=== PATIENT | male | born 1955 ===

== ENCOUNTER 2017-11-05 16:47 | Inpatient (IN) | payer MEDICAID, MEDICARE, SELFPAY ==
[2017-11-05 16:47] VITALS: BMI 26.6
[2017-11-05] MEDS ORDERED: Sodium Chloride 0.9% 1,000 ML IV STA (17:23)
[2017-11-05] MEDS ORDERED: Morphine 4 MG/ML VIAL IVP STA (17:24)
--- NOTE | 2017-11-05 17:33 | ED PDOC ---
HPI: Abdomen Chief Complaint (Provider): abd pain History Per: Patient History/Exam Limitations: no limitations Onset/Duration Of Symptoms: Days (2) Current Symptoms Are (Timing): Intermittent Episodes Pain Scale Rating Of: 10 Location Of Pain/Discomfort: Diffuse, Epigastric Quality Of Discomfort: Cramping Associated Symptoms: Nausea, Vomiting, Constipation Exacerbating Factors: None Alleviating Factors: None Last Bowel Movement: Days Ago (5) <Sharon Patterson - Last Filed: 11/05/17 18:55> <Emily Monroy - Last Filed: 11/05/17 21:22> Time Seen by Provider: 11/05/17 16:59 Chief Complaint (Nursing): Abdominal Pain Additional Complaint(s): 62 yo ,m, PMHx/o Asthma, HTN, perforated diverticulitis s/p reversal ileostomy 2014 presents to Ed c/o epigastric abdominal pain started 2 days ago in the afternoon 6 hours after patient ate chrimps. Reports pain intermittent, cramping, 10/10 intensity every 4-5 minutes, associated with nausea, non-bloddy , dark brown fecaloid vomiting, more than 4-5 /day and constipation. Last BM 5 days ago. Able to pass flatus, but not frequent. Reports abd pain is sometimes diffuse and radiated to lower abdomen, no aggravating or alleviating factors. Reports subjective fever 100.2 yesterday. Patient denies chest pain, heartburn, SOB, palpitation, rash, hives, dysuria. Reports low oral intake since yesterday. Reports normal BM with metamucil but run out of medication and now with constipation PMD: Agatha Hung (Sharon Patterson) Supervising Attending Note <Sharon Patterson - Last Filed: 11/05/17 18:55> - Supervising Attending Note The Documented history was done by the: Physician Streetcar Repairer, Attending Physician The documented physical exam was done by the: Physician Streetcar Repairer, Attending Physician - Attestation: I have personally seen and examined this patient.: Yes I have fully participated in the care of the patient.: Yes I have reviewed all pertinent clinical information: Yes <Emily Monroy - Last Filed: 11/05/17 21:22> - Notes: Notes:: diffuse tenderness, soft abdomen abd xray c/w obstruction (Emily Monroy) Past Medical History - Medical History PMH: Asthma (childhood), Diverticulitis, HTN Denies: Chronic Kidney Disease - Surgical History Surgical History: Back Surgery, Hernia Repair Other surgeries: Perforated Diverticulitis, reversal ileostomy. 2015 - Family History Family History: States: [place] (mother) - Social History Alcohol: None Drugs: Denies <Sharon Patterson - Last Filed: 11/05/17 18:55> <Emily Monroy - Last Filed: 11/05/17 21:22> Vital Signs: Last Vital Signs Temp 99.2 F 11/05/17 20:54 Pulse 82 11/05/17 20:54 Resp 18 11/05/17 20:54 BP 129/81 11/05/17 20:54 Pulse Ox 96 11/05/17 20:54 - Home Medications Home Medications: Ambulatory Orders Medication Instructions Recorded Baclofen [Lioresal] 10 mg PO HS 11/05/17 Losartan Potassium [Losartan 50 mg PO DAILY 11/05/17 Potassium] Oxycodone HCl/Acetaminophen 1 tab PO QID 11/05/17 [Percocet 10-325 mg Tablet] Pregabalin [Lyrica] 100 mg PO BID 11/05/17 Temazepam [Restoril] 15 mg PO HS 11/05/17 - Allergies Allergies/Adverse Reactions: Allergies Allergy/AdvReac Type Severity Reaction Status Date / Time No Known Allergies Allergy Verified 03/19/15 11:01 Review of Systems Gastrointestinal: Positive for: Nausea, Vomiting, Abdominal Pain, Diarrhea, Constipation <Sharon Patterson - Last Filed: 11/05/17 18:55> Physical Exam - Physical Exam Appears: Positive for: Non-toxic Head Exam: Positive for: ATRAUMATIC, NORMOCEPHALIC Skin: Positive for: Normal Color Eye Exam: Positive for: Normal appearance Neck: Positive for: Normal Cardiovascular/Chest: Positive for: Regular Rate, Rhythm. Negative for: Chest Non Tender, Murmur Respiratory: Positive for: Normal Breath Sounds. Negative for: Crackles, Rales , Rhonchi Gastrointestinal/Abdominal: Positive for: Bowel Sounds, Soft, Tenderness (TD epigastrium, periumbilical, LLQ), Distended, Other (tympanic to percussion LUQ, egastric). Negative for: Guarding, Rebound Extremity: Positive for: Normal ROM. Negative for: Tenderness, Pedal Edema Neurologic/Psych: Positive for: Alert, Oriented <Sharon Patterson - Last Filed: 11/05/17 18:55> - Laboratory Results Result Diagrams: 11/05/17 17:57 11/05/17 17:57 - ECG O2 Sat by Pulse Oximetry: 98 <Sharon Patterson - Last Filed: 11/05/17 18:55> - Laboratory Results Result Diagrams: 11/05/17 17:57 11/05/17 17:57 <Emily Monroy - Last Filed: 11/05/17 21:22> Medical Decision Making <Sharon Patterson - Last Filed: 11/05/17 18:55> <Emily Monroy - Last Filed: 11/05/17 21:22> Medical Decision Makin:25 62 yo ,m, Hx/o perforated diverticulitis with reversal ileostomy 2015 with abdominal pain started after chrimps ingestion, vomiting, colic abd pain, constipation Initial impression Intestinal Obstruction secondary to adhesions Food Poisoning Differential Acute Pancreatitis Acute Diverticulitis Acute Appendicitis Ischemic bowel disease Plan CBC,CMP,Lipase, mg,phosp, EKG, troponin, IV fluids, pepsid,Zofran, Morphine Obstructive Series XR Abd Obst series: showed loop distention and gas and fluid levels at different heights indicating a mechanical obstruction. pending final reports General surgery resident air conditioning technician for Dr Bennett called and aware about the case. 18:39 reevaluation PAtient reports feeling better after pain medications. last vomiting 1 pm. Surgery Resident bedside evaluating patient. Labs reviewed CBC normal, M.7 , VBG: Met alkalosis. K:3.5, troponin neg XR OBst series: distal small bowel obstruction either earlier incomplete. no free air identified CT abd/pelvis IV contrast ordered Patient will be admitted Surgery consult appreciated. will place NGT (Sharon Patterson) Disposition - Disposition Disposition Time: 18:55 <Sharon Patterson - Last Filed: 11/05/17 18:55> <Emily Monroy - Last Filed: 11/05/17 21:22> - Clinical Impression Clinical Impression: Intestinal obstruction - Disposition Condition: STABLE
[2017-11-05] MEDS ORDERED: Morphine 4 MG/ML VIAL ONE (17:35)
[2017-11-05 17:46] LABS: VENOUS BLOOD GAS PCO2 45 mmHg (40-60); VENOUS BLOOD GAS PO2 29 mm/Hg (30-55); VENOUS BLOOD PH 7.47 (7.32-7.43)
[2017-11-05 18:06] LABS: BASO % 0.1 % (0.0-2.0); EOS % 0.5 % (0.0-4.0); HEMOGLOBIN 11.2 g/dL (12.0-18.0); LYMPH # 0.9 K/uL (1.0-4.3); LYMPH % 12.3 % (20.0-40.0); MEAN CELL VOLUME 68.3 fl (80.0-94.0); MEAN CORPUSCULAR HGB CONC 30.7 g/dL (33.0-37.0); MEAN PLATELET VOLUME 8.8 fl (7.2-11.7); MONO # 0.8 K/uL (0.0-0.8); NEUT # 5.6 K/uL (1.8-7.0); NEUT % 76.1 % (50.0-75.0); RBC 5.34 Mil/uL (4.40-5.90); RED CELL DISTRIBUTION WIDTH 20.8 % (11.5-14.5); WHITE BLOOD COUNT 7.4 K/uL (4.8-10.8)
[2017-11-05 18:11] LABS: INR 1.2 (0.9-1.2); PARTIAL THROMBOPLASTIN TIME 26.9 Seconds (25.6-37.1); PROTHROMBIN TIME 12.9 Seconds (9.8-13.1)
[2017-11-05 18:21] LABS: ALB/GLOB RATIO 1.2 (1.0-2.1); ALBUMIN 4.9 g/dL (3.5-5.0); ALT/SGPT 48 U/L (21-72); AST/SGOT 36 U/L (17-59); BLOOD UREA NITROGEN 30 mg/dl (9-20); CALCIUM 9.6 mg/dL (8.4-10.2); GFR AFRICAN-AMERICAN > 60; GFR NON-AFRICAN AMERICAN > 60; LIPASE 221 U/L (23-300)
--- NOTE | 2017-11-05 18:47 | RAD ---
PROCEDURE: Radiographs of the chest and abdomen (obstructive series) rim rim HISTORY: Abd pain,vomiting.R/o Intest Obstruction COMPARISON: No prior. TECHNIQUE: AP radiograph of the chest, with upright and supine radiographs of the abdomen. FINDINGS: CHEST: Lungs: Clear. Cardiovascular: Normal size heart. No pulmonary vascular congestion. Pleura: No pleural fluid. No pneumothorax. Other findings: None. ABDOMEN AND PELVIS: Bowel: Dilated small bowel, this extends to the the right lower quadrant. Free air: None. Bones: Unremarkable. Other findings: Distended stomach with air-fluid level. IMPRESSION: Distal small bowel obstruction either earlier incomplete. No free air identified.
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
[2017-11-05] MEDS ORDERED: Iohexol 300 100 ML IJ ONE (19:21)
[2017-11-05] MEDS ORDERED: Sodium Chloride 0.9% 100 ML ONE (19:21)
--- NOTE | 2017-11-05 20:37 | CT ---
EXAM: CT Abdomen and Pelvis With Intravenous Contrast EXAM DATE/TIME: 11/05/2017 6:59 PM CLINICAL HISTORY: 62 years old, male; Pain; Abdominal pain; Epigastric; Prior surgery; Surgery date: 6+ months; Surgery type: Perforated divertic. S/P reversal ileostomy 2014; Additional info: Obstruction. Sent phy. Doc. TECHNIQUE: Axial computed tomography images of the abdomen and pelvis with intravenous contrast. All CT scans at this facility use one or more dose reduction techniques, viz.: automated exposure control; ma/kV adjustment per patient size (including targeted exams where dose is matched to indication; i.e. head); or iterative reconstruction technique. Coronal and sagittal reformatted images were created and reviewed. CONTRAST: 95 mL of administered intravenously. COMPARISON: CT - ABD PELVIS IV CONTRAST ONLY 2014-11-25 14:00 FINDINGS: Lower thorax: Heart size is normal. The distal esophagus is collapsed around a nasogastric tube. There is scarring at the lung bases. ABDOMEN: Liver: There is fatty infiltration of the liver. Gallbladder and bile ducts: Gallbladder is partially distended. There are multiple small stones.Common duct is unremarkable. Pancreas: Pancreas is atrophic. Spleen: unremarkable Adrenals: unremarkable Kidneys and ureters: There is a left renal cyst.Kidneys and ureters are otherwise unremarkable. Stomach and bowel: Stomach is incompletely distended. Nasogastric tube tip is in the stomach. Rotation is normal. Majority of the small bowel is dilated. There are air fluid levels. There is transition to normal caliber in the pelvis, image 47 series 601 there is mild small bowel dilatation and an enteral anastomosis in the right lower quadrant. Much of the ileum is decompressed. Ileocecal region is unremarkable. Appendix and terminal ileum are unremarkable.Colon is incompletely distended which limits evaluation. There is been partial left colon resection. There is diverticulosis Appendix: See stomach and bowel PELVIS: Bladder: unremarkable Reproductive: Seminal vesicles and prostate are unremarkable. ABDOMEN and PELVIS: Intraperitoneal space: There is no free air or free fluid. Bones/joints: There are degenerative changes in the osseus structures. Soft tissues: unremarkable Vasculature: There are vascular calcifications. Lymph nodes: There is no pathologic adenopathy. IMPRESSION: Small bowel obstruction; prior partial small bowel resection with enteral anastomosis in the right lower quadrant; partial left hemicolectomy; diverticulosis without CT findings of diverticulitis; fatty liver; gallstones
[2017-11-05] MEDS ORDERED: HYDROmorphone 0.5 mg/0.5 ml ISec IVP SCH (22:00)
[2017-11-05] MEDS: Lactated Ringer's 1,000 ML IV SCH (22:27)
[2017-11-05] MEDS: HYDROmorphone 0.5 mg/0.5 ml ISec IVP PRN (22:38)
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
[2017-11-06] MEDS: Lactated Ringer's 1,000 ML IV SCH ×6 (03:11→20:42)
[2017-11-06] MEDS: HYDROmorphone 0.5 mg/0.5 ml ISec IVP PRN (06:16)
--- NOTE | 2017-11-06 07:59 | CP.PCM.PN ---
Subjective - Date & Time of Evaluation Date of Evaluation: 11/06/17 Time of Evaluation: 07:30 - Subjective Subjective: SURGERY PROGRESS NOTE FOR DR. LÓPEZ 62M seen and examined at bedside. Patient states he had mild abdominal pain still, denies vomiting but states he does have nausea. He states he is not passing gas and has not had a bowel movement in 3/4 days. Denies fevers and chills. Objective - Vital Signs/Intake and Output Vital Signs (last 24 hours): Temp Pulse Resp BP Pulse Ox 97.4 F L 73 20 106/69 97 11/05/17 23:30 11/05/17 23:30 11/05/17 23:30 11/05/17 23:30 11/05/17 23:30 Intake and Output: 11/06/17 11/06/17 06:59 18:59 Output Total 10 Balance -10 - Medications Medications: Current Medications Lactated Ringer's (Lactated Ringer's) 1,000 mls @ 125 mls/hr IV .Q8H FRIDA Last Admin: 11/06/17 06:12 Dose: 125 mls/hr Ondansetron HCl (Zofran Inj) 4 mg IVP Q6 PRN PRN Reason: Nausea/Vomiting Pantoprazole Sodium (Protonix Inj) 40 mg IVP DAILY FRIDA - Labs Labs: 11/05/17 17:57 11/05/17 17:57 PT 12.9 Seconds (9.8-13.1) 11/05/17 17:57 INR 1.2 (0.9-1.2) 11/05/17 17:57 APTT 26.9 Seconds (25.6-37.1) 11/05/17 17:57 - Constitutional Appears: Well, Non-toxic, No Acute Distress - ENT Exam ENT Exam: Mucous Membranes Moist - Respiratory Exam Respiratory Exam: Clear to Ausculation Bilateral, NORMAL BREATHING PATTERN - Cardiovascular Exam Cardiovascular Exam: REGULAR RHYTHM, +S1, +S2 - GI/Abdominal Exam GI & Abdominal Exam: Soft, Tenderness (moderate tenderness diffusely), Rebound. absent: Distended, Firm, Guarding, Rigid - Neurological Exam Neurological Exam: Alert, Awake - Skin Skin Exam: Dry, Intact, Normal Color, Warm Assessment and Plan - Assessment and Plan (Free Text) Assessment: 62M presents with SBO Plan: NGT in place - 30cc out overnight Pain control, anti-emetic Serial abdominal exam Await bowel function Further recs discuss with Dr. Donald Nicholas, PGY2
--- NOTE | 2017-11-06 12:09 | CARD ---
APPROVED REPORT EKG Measurement Heart [id number] <Conclusion> Normal sinus rhythm Normal ECG
[2017-11-06 12:45] LABS: BLOOD UREA NITROGEN 28 mg/dl (9-20); CALCIUM 8.5 mg/dL (8.4-10.2); GFR AFRICAN-AMERICAN > 60; GFR NON-AFRICAN AMERICAN > 60
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
[2017-11-07] MEDS: Lactated Ringer's 1,000 ML IV SCH ×3 (04:00→20:20)
--- NOTE | 2017-11-07 07:45 | CP.PCM.PN ---
Subjective - Date & Time of Evaluation Date of Evaluation: 11/07/17 Time of Evaluation: 07:43 - Subjective Subjective: Surgery Progress Note: Dr. Bennett 62 year old male patient was seen and examined at bedside. Reports mild abdominal pain still but denies vomiting. He states he passed gas and was able to have a small bowel movement as well. Denies fevers and chills. Objective - Vital Signs/Intake and Output Vital Signs (last 24 hours): Temp Pulse Resp BP Pulse Ox 97.9 F 73 20 104/69 95 11/06/17 23:39 11/06/17 23:39 11/06/17 23:39 11/06/17 23:39 11/06/17 23:39 - Medications Medications: Current Medications Acetaminophen (Tylenol 325mg Tab) 650 mg PO Q6 PRN PRN Reason: Headache Heparin Sodium (Porcine) (Heparin) 5,000 units SC Q8 [facility] PRN Reason: Protocol Last Admin: 11/07/17 00:47 Dose: 5,000 units Lactated Ringer's (Lactated Ringer's) 1,000 mls @ 125 mls/hr IV .Q8H [facility] Last Admin: 11/06/17 20:42 Dose: 125 mls/hr Ketorolac Tromethamine (Toradol) 15 mg IVP Q6 PRN PRN Reason: Pain, moderate (4-7) Metoclopramide HCl (Reglan) 10 mg IVP Q8 [facility] Last Admin: 11/07/17 00:48 Dose: 10 mg Morphine Sulfate (Morphine) 1 mg IVP Q4 PRN PRN Reason: Pain, severe (8-10) Last Admin: 11/07/17 02:00 Dose: 1 mg Ondansetron HCl (Zofran Inj) 4 mg IVP Q6 PRN PRN Reason: Nausea/Vomiting Last Admin: 11/06/17 17:32 Dose: 4 mg Pantoprazole Sodium (Protonix Inj) 40 mg IVP DAILY [facility] Last Admin: 11/06/17 08:31 Dose: 40 mg - Labs Labs: 11/05/17 17:57 11/06/17 11:49 PT 12.9 Seconds (9.8-13.1) 11/05/17 17:57 INR 1.2 (0.9-1.2) 11/05/17 17:57 APTT 26.9 Seconds (25.6-37.1) 11/05/17 17:57 - Constitutional Appears: Well, Non-toxic, No Acute Distress - Head Exam Head Exam: ATRAUMATIC - GI/Abdominal Exam GI & Abdominal Exam: Soft. absent: Hernia, Mass - Neurological Exam Neurological Exam: Alert, Awake, Oriented x3 - Psychiatric Exam Psychiatric exam: Normal Affect, Normal Mood Assessment and Plan - Assessment and Plan (Free Text) Assessment: 62M presents with SBO Plan: Pain control, anti-emetic Serial abdominal exam - Shows improvement Await bowel function Start clear liquid diet Further recs discuss with Dr. Bennett
--- NOTE | 2017-11-07 12:54 | RAD ---
PROCEDURE: Radiographs of the chest and abdomen (obstructive series) HISTORY: sbo COMPARISON: No prior. TECHNIQUE: AP radiograph of the chest, with upright and supine radiographs of the abdomen. FINDINGS: CHEST: Lungs: Clear. Cardiovascular: Normal size heart. No pulmonary vascular congestion. Pleura: No pleural fluid. No pneumothorax. Other findings: None. ABDOMEN AND PELVIS: Bowel: Prominent small bowel loops with air-fluid levels on the AP view. Free air: None. Bones: Unremarkable. Other findings: None. IMPRESSION: Prominent small bowel loops with air-fluid levels on the AP view compatible with known small bowel obstruction.
[2017-11-07] MEDS ORDERED: Chlorhexidine Gluconate 1 APPL/PKT TP ONE (20:25)
[2017-11-07] MEDS ORDERED: Morphine 4 MG/ML VIAL IVP PRN (20:54)
[2017-11-07] MEDS ORDERED: Potassium Ch 20mEq in D5-1/2NS 1,000 ML IV SCH (21:00)
[2017-11-07 21:19] LABS: BASO % 0.2 % (0.0-2.0); EOS # 0.1 K/uL (0.0-0.7); EOS % 1.9 % (0.0-4.0); HEMOGLOBIN 9.2 g/dL (12.0-18.0); LYMPH # 0.7 K/uL (1.0-4.3); LYMPH % 11.9 % (20.0-40.0); MEAN CELL VOLUME 69.5 fl (80.0-94.0); MEAN CORPUSCULAR HEMOGLOBIN 21.1 pg (27.0-31.0); MEAN CORPUSCULAR HGB CONC 30.3 g/dL (33.0-37.0); MEAN PLATELET VOLUME 8.5 fl (7.2-11.7); MONO # 0.9 K/uL (0.0-0.8); MONO % 14.6 % (0.0-10.0); NEUT # 4.3 K/uL (1.8-7.0); NEUT % 71.4 % (50.0-75.0); RBC 4.35 Mil/uL (4.40-5.90); RED CELL DISTRIBUTION WIDTH 20.3 % (11.5-14.5); WHITE BLOOD COUNT 6.1 K/uL (4.8-10.8)
[2017-11-07 21:39] LABS: ALB/GLOB RATIO 1.1 (1.0-2.1); ALBUMIN 3.7 g/dL (3.5-5.0); ALT/SGPT 38 U/L (21-72); AST/SGOT 27 U/L (17-59); BLOOD UREA NITROGEN 18 mg/dl (9-20); CALCIUM 8.8 mg/dL (8.4-10.2); GFR AFRICAN-AMERICAN > 60; GFR NON-AFRICAN AMERICAN > 60
[2017-11-07 22:26] LABS: VENOUS BLOOD GAS BASE EXCESS 1.7 mmol/L (0.0-2.0); VENOUS BLOOD GAS PCO2 38 mmHg (40-60); VENOUS BLOOD GAS PO2 44 mm/Hg (30-55); VENOUS BLOOD PH 7.44 (7.32-7.43)
--- NOTE | 2017-11-07 22:46 | CP.PCM.PN ---
Subjective - Date & Time of Evaluation Date of Evaluation: 11/07/17 Time of Evaluation: 14:30 - Subjective Subjective: Still c/o of abdominal pain. Denies nausea/vomiting. States passing flatus, had a very small BM Feels hungry, would like to eat. Denies cp, sob, fever or chills Objective - Vital Signs/Intake and Output Vital Signs (last 24 hours): Temp Pulse Resp BP Pulse Ox 98.6 F 90 18 116/75 95 11/07/17 22:30 11/07/17 22:30 11/07/17 22:30 11/07/17 22:30 11/07/17 22:30 - Medications Medications: Current Medications Acetaminophen (Tylenol 325mg Tab) 650 mg PO Q6 PRN PRN Reason: Headache Heparin Sodium (Porcine) (Heparin) 5,000 units SC Q8 [facility] PRN Reason: Protocol Last Admin: 11/07/17 16:16 Dose: 5,000 units Potassium Chloride/Dextrose/Sod Cl (Potassium Chl 20 Meq In D5-Ns) 1,000 mls @ 125 mls/hr IV .Q8H [facility] Stop: 11/09/17 21:43 Ketorolac Tromethamine (Toradol) 15 mg IVP Q6 PRN PRN Reason: Pain, moderate (4-7) Last Admin: 11/07/17 17:06 Dose: 15 mg Metoclopramide HCl (Reglan) 10 mg IVP Q8 [facility] Last Admin: 11/07/17 16:16 Dose: 10 mg Morphine Sulfate (Morphine) 4 mg IVP Q4 PRN PRN Reason: Pain, severe (8-10) Last Admin: 11/07/17 21:06 Dose: 4 mg Morphine Sulfate (Morphine) 2 mg IVP Q4 PRN PRN Reason: Pain, moderate (4-7) Ondansetron HCl (Zofran Inj) 4 mg IVP Q6 PRN PRN Reason: Nausea/Vomiting Last Admin: 11/06/17 17:32 Dose: 4 mg Pantoprazole Sodium (Protonix Inj) 40 mg IVP DAILY [facility] Last Admin: 11/07/17 08:23 Dose: 40 mg - Labs Labs: 11/07/17 20:26 11/07/17 20:26 PT 12.9 Seconds (9.8-13.1) 11/05/17 17:57 INR 1.2 (0.9-1.2) 11/05/17 17:57 APTT 26.9 Seconds (25.6-37.1) 11/05/17 17:57 - Constitutional Appears: Well, No Acute Distress - Head Exam Head Exam: ATRAUMATIC - Respiratory Exam Respiratory Exam: Clear to Ausculation Bilateral, NORMAL BREATHING PATTERN - Cardiovascular Exam Cardiovascular Exam: REGULAR RHYTHM, +S1, +S2 - GI/Abdominal Exam GI & Abdominal Exam: Soft, Tenderness (LLQ), Normal Bowel Sounds - Neurological Exam Neurological Exam: Alert, Oriented x3 - Psychiatric Exam Psychiatric exam: Normal Affect, Normal Mood - Skin Skin Exam: Normal Color, Warm Assessment and Plan (1) Small bowel obstruction Assessment & Plan: Maintain NPO IVF surgery on board pain medications prn anti-emetics prn DVT/GI prophylaxis Status: Acute (2) Abdominal pain Status: Acute (3) Hypertension Status: Chronic
[2017-11-07] MEDS: Potassium Chl 20 mEq in D5-NS 1,000 ML IV SCH (23:03)
[2017-11-08] MEDS: Potassium Chl 20 mEq in D5-NS 1,000 ML IV SCH ×4 (06:26→21:33)
[2017-11-08 07:34] LABS: BASO % 0.2 % (0.0-2.0); EOS # 0.1 K/uL (0.0-0.7); EOS % 2.1 % (0.0-4.0); HEMOGLOBIN 8.5 g/dL (12.0-18.0); LYMPH # 1.1 K/uL (1.0-4.3); LYMPH % 16.8 % (20.0-40.0); MEAN CELL VOLUME 68.8 fl (80.0-94.0); MEAN CORPUSCULAR HEMOGLOBIN 21.6 pg (27.0-31.0); MEAN CORPUSCULAR HGB CONC 31.5 g/dL (33.0-37.0); MEAN PLATELET VOLUME 8.7 fl (7.2-11.7); MONO # 0.9 K/uL (0.0-0.8); MONO % 13.4 % (0.0-10.0); NEUT # 4.5 K/uL (1.8-7.0); NEUT % 67.5 % (50.0-75.0); RBC 3.92 Mil/uL (4.40-5.90); RED CELL DISTRIBUTION WIDTH 20.5 % (11.5-14.5); WHITE BLOOD COUNT 6.7 K/uL (4.8-10.8)
[2017-11-08 07:50] LABS: BLOOD UREA NITROGEN 14 mg/dl (9-20); CALCIUM 8.4 mg/dL (8.4-10.2); GFR AFRICAN-AMERICAN > 60; GFR NON-AFRICAN AMERICAN > 60
--- NOTE | 2017-11-08 10:07 | RAD ---
HISTORY: SBO, worsening pain COMPARISON: Correlation made with CT scan abdomen pelvis 11/05/2017 at the at 1923 hours. Comparison made with abdominal radiographs 11/25/2014 FINDINGS: In situ NGT, tip of which overlies midline in the upper/mid abdomen region. BOWEL: Re- demonstrated are multiple distended air-filled loops of small bowel ; rule out partial/ -intermittent small bowel versus complete small bowel that obstruction. BONES: Normal. OTHER FINDINGS: None. IMPRESSION: In situ NGT. Rule out partial/ intermittent or complete small bowel obstruction.
--- NOTE | 2017-11-08 12:45 | RAD ---
HISTORY: Pre-op COMPARISON: Comparison chest dated 01/09/2016 FINDINGS: In situ NGT, the distal aspect and tip of which are not visible on this exam clinical correlation recommended LUNGS: No active pulmonary disease. PLEURA: No significant pleural effusion identified, no pneumothorax apparent. CARDIOVASCULAR: Normal. OSSEOUS STRUCTURES: No significant abnormalities. VISUALIZED UPPER ABDOMEN: Normal. OTHER FINDINGS: None. IMPRESSION: In situ NGT, the distal aspect of which and tip of which are not visible on this exam. Clinical correlation recommended.Findings discussed with Nurse Bernie Olguin
[2017-11-08] MEDS ORDERED: Etomidate 20 mg/10ml Inj IV ONE (12:48)
[2017-11-08] MEDS ORDERED: Propofol 10 mg/ml Inj (20 ML) ONE (12:48)
[2017-11-08] MEDS ORDERED: Succinylcholine 200 mg/10 ml Inj IV ONE (12:48)
[2017-11-08] MEDS ORDERED: Rocuronium 10 mg/ml (5 ml) ONE (12:48)
[2017-11-08] MEDS ORDERED: Lidocaine 4% (Laryng-O-Jet) Kit MM ONE (12:48)
[2017-11-08] MEDS ORDERED: Bupivacaine HCl/Epi 0.5% 1:20000 30 ML SOL IJ ONE (12:55)
[2017-11-08] MEDS ORDERED: Phenylephrine 10 mg/ml Inj ONE (12:55)
[2017-11-08] MEDS ORDERED: Ketamine 50 mg/ml Inj (10 ml) ONE (12:57)
[2017-11-08] MEDS ORDERED: Lidocaine 1% Inj (20ml) ONE (13:03)
[2017-11-08] MEDS ORDERED: Bupivacaine 0.5% Inj(30mL) ONE (13:03)
[2017-11-08] MEDS ORDERED: metroNIDAZOLE 500mg/100ml NS 0 ML IVPB ONE (13:03)
[2017-11-08] MEDS ORDERED: Ciprofloxacin 400mg/200ml D5W 0 MG/0 ML BAG IVPB ONE (13:03)
--- NOTE | 2017-11-08 13:31 | CP.PCM.PN ---
Subjective - Date & Time of Evaluation Date of Evaluation: 11/08/17 Time of Evaluation: 06:30 - Subjective Subjective: SURGERY NOTE FOR DR. LÓPEZ 62M seen and examined at bedside. No acute events overnight. Patient states he does have pain which is worse from couple days ago, admits to nausea, denies vomiting. He states he has stopped passing gas again and denies bowel movements overnight or today. Denies fevers, chills. Objective - Vital Signs/Intake and Output Vital Signs (last 24 hours): Temp Pulse Resp BP Pulse Ox 98.2 F 81 79 H 135/88 97 11/08/17 07:37 11/08/17 12:41 11/08/17 12:43 11/08/17 12:43 11/08/17 07:37 Intake and Output: 11/08/17 11/08/17 06:59 18:59 Intake Total 850 1000 Output Total 100 500 Balance 750 500 - Medications Medications: Current Medications Acetaminophen (Tylenol 325mg Tab) 650 mg PO Q6 PRN PRN Reason: Headache Heparin Sodium (Porcine) (Heparin) 5,000 units SC Q8 [facility] PRN Reason: Protocol Last Admin: 11/08/17 08:46 Dose: 5,000 units Potassium Chloride/Dextrose/Sod Cl (Potassium Chl 20 Meq In D5-Ns) 1,000 mls @ 125 mls/hr IV .Q8H [facility] Stop: 11/09/17 21:43 Last Admin: 11/08/17 09:52 Dose: 125 mls/hr Metoclopramide HCl (Reglan) 10 mg IVP Q8 [facility] Last Admin: 11/08/17 08:47 Dose: 10 mg Morphine Sulfate (Morphine) 4 mg IVP Q4 PRN PRN Reason: Pain, severe (8-10) Last Admin: 11/07/17 21:06 Dose: 4 mg Morphine Sulfate (Morphine) 2 mg IVP Q4 PRN PRN Reason: Pain, moderate (4-7) Last Admin: 11/08/17 09:25 Dose: 2 mg Ondansetron HCl (Zofran Inj) 4 mg IVP Q6 PRN PRN Reason: Nausea/Vomiting Last Admin: 11/06/17 17:32 Dose: 4 mg Pantoprazole Sodium (Protonix Inj) 40 mg IVP DAILY [facility] Last Admin: 03/09/18 08:47 Dose: 40 mg - Labs Labs: 11/08/17 06:20 18 06:20 PT 12.9 Seconds (9.8-13.1) 11/05/17 17:57 INR 1.2 (0.9-1.2) 11/05/17 17:57 APTT 26.9 Seconds (25.6-37.1) 11/05/17 17:57 - Constitutional Appears: Non-toxic, No Acute Distress, Other (uncomfortable) - ENT Exam ENT Exam: Mucous Membranes Moist - Respiratory Exam Respiratory Exam: Clear to Ausculation Bilateral, NORMAL BREATHING PATTERN - Cardiovascular Exam Cardiovascular Exam: REGULAR RHYTHM, +S1, +S2 - GI/Abdominal Exam GI & Abdominal Exam: Distended, Guarding, Tenderness (moderate to severely tender on palpation, increased from admission), Rebound. absent: Firm, Rigid Additional comments: NGT in place - Neurological Exam Neurological Exam: Alert, Awake - Psychiatric Exam Psychiatric exam: Normal Affect, Normal Mood - Skin Skin Exam: Dry, Intact, Normal Color, Warm Assessment and Plan - Assessment and Plan (Free Text) Assessment: 62M presents with unresolving small bowel obstruction Plan: Pre-op patient Pain control Monitor NGT output Serial abdominal exam OR today for Exploratomy laparotomy Discussed with Dr. Donald Nicholas, PGY2
[2017-11-08] MEDS ORDERED: Lactated Ringer's 1,000 ML IV ONE ×2 (13:57→14:29)
[2017-11-08] MEDS ORDERED: Midazolam 2 MG/2 ML VIAL ONE (13:58)
[2017-11-08] MEDS ORDERED: Sodium Chloride 0.9% 500 ML IV ONE (14:00)
[2017-11-08] MEDS ORDERED: Dexamethasone 4 mg/1 ml ONE (14:14)
[2017-11-08] MEDS ORDERED: Sodium Chloride 0.9% 1,000 ML IV ONE (14:29)
--- NOTE | 2017-11-08 15:32 | PCM.SURG1 ---
Surgeon's Initial Post Op Note - Surgeon's Notes Surgeon: Donald Cement Truck Driver: Yu PGY2. Maria Luisa PGY2. Pre-Operative Diagnosis: Small bowel obstruction Operative Findings: multiple adhesions, dilated bowel with transition to collaped bowel Post-Operative Diagnosis: small bowel obstruction Operation Performed: Exploratory laparotomy, Lysis of multiple adhesions, repair of serosal tear Specimen/Specimens Removed: n/a Estimated Blood Loss: EBL {In ML}: 10 Date of Surgery/Procedure: 11/08/17 Time of Surgery/Procedure: 14:15
[2017-11-08] MEDS ORDERED: HYDROmorphone 0.5 mg/0.5 ml ISec IVP PRN (15:34)
--- NOTE | 2017-11-08 21:38 | OP ---
PROCEDURE DATE: 11/08/2017 PREOPERATIVE DIAGNOSIS: Small bowel obstruction. POSTOPERATIVE DIAGNOSIS: Small bowel obstruction due to adhesions. PROCEDURE: Laparotomy, lysis of adhesions, and release of small-bowel obstruction. SURGEON: Garrison Bennett MD ASSISTANTS: Dr. Nicholas and Dr. Glass TYPE OF ANESTHESIA: General ANESTHESIA ADMINISTERED BY: Arthur Almeida MD DESCRIPTION OF OPERATION: With the patient in the supine position under adequate general anesthesia, the abdomen was prepped and draped in the usual sterile manner. A midline incision was made in the lower abdomen from the umbilicus towards the pubis taken down through the subcutaneous tissue. The anterior fascia was incised. The pyramidalis muscle was split and the peritoneum was elevated and incised to enter the peritoneal cavity. There was some blood-tinged fluid noted within the peritoneal cavity as well as dilated small bowel. The small bowel was removed from the abdomen and run proximally and distally with a finding of a dense adhesion close to the umbilicus where the bowel appear to be adherent to the previous umbilical hernia repair. The bowel was freed from the area of the umbilicus in this area and the serosa was repaired with a running suture of 2-0 Vicryl. The bowel was noted to be dilated both proximal and distal to this point, so the small bowel run further in a distal direction and a tight internal hernia created by a band of omentum and a loop of bowel was identified and lysed and this was noted to be the probable site of the clinically significant obstruction. The small bowel appeared compressed in this area, but with some time, the serosa appeared more normal and the area of narrowing extended beyond this point of obstruction. The collapsed bowel distal to this point was then run continuously to the area of the terminal ileum and a number of other areas of possible obstruction were identified and lysed, these were mostly interloop adhesions where the bowel appeared mildly distorted and these were sharply lysed until the area of the terminal ileum was identified as well as the junction with the cecum. There was an anastomosis in this area from the patient's previous ileostomy and this was noted to be patent with no evidence of obstruction in this area. The bowel was then returned to the peritoneal cavity and the abdomen and pelvis were irrigated and suctioned with warm saline. Closure was performed with running fascial suture of double-stranded #1 PDS and the skin was closed with socorro. A dry sterile dressing was applied. The patient tolerated the procedure well and transferred to recovery room in stable condition. Estimated blood loss for the procedure was 50 mL. Garrison Bennett MD [facility]
[2017-11-08 22:57] LABS: HEMOGLOBIN 8.6 g/dL (12.0-18.0); MEAN CELL VOLUME 69.5 fl (80.0-94.0); MEAN CORPUSCULAR HEMOGLOBIN 21.4 pg (27.0-31.0); MEAN CORPUSCULAR HGB CONC 30.8 g/dL (33.0-37.0); RBC 4.02 Mil/uL (4.40-5.90); RED CELL DISTRIBUTION WIDTH 20.2 % (11.5-14.5); WHITE BLOOD COUNT 6.4 K/uL (4.8-10.8)
--- NOTE | 2017-11-08 23:23 | CP.PCM.PN ---
Subjective - Date & Time of Evaluation Date of Evaluation: 11/08/17 Time of Evaluation: 12:40 - Subjective Subjective: C/o of abdominal pain, more severe in the LLQ. Has not passed flatus or had BM today NGT was reinserted last night. Denies cp, sob, fever or chills. Going to surgery today Objective - Vital Signs/Intake and Output Vital Signs (last 24 hours): Temp Pulse Resp BP Pulse Ox 97.6 F 86 20 126/81 96 11/08/17 20:30 11/08/17 20:30 11/08/17 20:30 11/08/17 20:30 11/08/17 20:30 Intake and Output: 11/08/17 11/09/17 18:59 06:59 Intake Total 3200 Output Total 955 500 Balance 2245 -500 - Medications Medications: Current Medications Acetaminophen (Tylenol 325mg Tab) 650 mg PO Q6 PRN PRN Reason: Headache Heparin Sodium (Porcine) (Heparin) 5,000 units SC Q8 [facility] PRN Reason: Protocol Last Admin: 11/08/17 18:42 Dose: 5,000 units Acetaminophen (Ofirmev) 100 mls @ 400 mls/hr IVPB Q6H [facility] PRN Reason: Protocol Stop: 11/09/17 14:01 Last Admin: 11/08/17 21:23 Dose: 400 mls/hr Potassium Chloride/Dextrose/Sod Cl (Potassium Chl 20 Meq In D5-Ns) 1,000 mls @ 100 mls/hr IV .Q10H [facility] Stop: 11/09/17 21:43 Last Admin: 11/08/17 21:33 Dose: 100 mls/hr Metoclopramide HCl (Reglan) 10 mg IVP Q8 [facility] Last Admin: 11/08/17 18:43 Dose: 10 mg Morphine Sulfate (Morphine) 4 mg IVP Q4 PRN PRN Reason: Pain, severe (8-10) Last Admin: 11/07/17 21:06 Dose: 4 mg Morphine Sulfate (Morphine) 2 mg IVP Q4 PRN PRN Reason: Pain, moderate (4-7) Last Admin: 11/08/17 23:17 Dose: 2 mg Ondansetron HCl (Zofran Inj) 4 mg IVP Q6 PRN PRN Reason: Nausea/Vomiting Last Admin: 11/06/17 17:32 Dose: 4 mg Pantoprazole Sodium (Protonix Inj) 40 mg IVP DAILY [facility] Last Admin: 11/08/17 08:47 Dose: 40 mg - Labs Labs: 11/08/17 22:53 11/08/17 06:20 PT 12.9 Seconds (9.8-13.1) 11/05/17 17:57 INR 1.2 (0.9-1.2) 11/05/17 17:57 APTT 26.9 Seconds (25.6-37.1) 11/05/17 17:57 - Constitutional Appears: Well, No Acute Distress - Head Exam Head Exam: ATRAUMATIC - Respiratory Exam Respiratory Exam: Clear to Ausculation Bilateral, NORMAL BREATHING PATTERN - Cardiovascular Exam Cardiovascular Exam: REGULAR RHYTHM, +S1, +S2 - GI/Abdominal Exam GI & Abdominal Exam: Soft, Hypoactive Bowel Sounds - Neurological Exam Neurological Exam: Alert, Normal Gait, Oriented x3 - Psychiatric Exam Psychiatric exam: Normal Affect, Normal Mood - Skin Skin Exam: Normal Color, Warm Assessment and Plan (1) Small bowel obstruction Assessment & Plan: maintain NPO IVF with potassium replacement pain medications prn anti-emetics prn trend labs NPO, OR today for exploratory laparotomy Status: Acute (2) Abdominal pain Status: Acute (3) Hypertension Status: Chronic
[2017-11-09] MEDS: Potassium Chl 20 mEq in D5-NS 1,000 ML IV SCH ×2 (02:42→11:03)
--- NOTE | 2017-11-09 05:39 | CP.PCM.PN ---
Subjective - Date & Time of Evaluation Date of Evaluation: 11/09/17 Time of Evaluation: 05:55 - Subjective Subjective: General Surgery Note for Dr. Bennett Patient seen and examined at bedside. No acute event overnight. Patient resting in bed comfortably. He is s/p exploratory laparotomy, Lysis of multiple adhesions, and repair of serosal tear POD#1. Patient denies nausea/vomiting. He states pain is well controlled. Hematuria has resolved. bess with 700cc of yellow output. No complaints at this time. Objective - Vital Signs/Intake and Output Vital Signs (last 24 hours): Temp Pulse Resp BP Pulse Ox 97.9 F 77 18 126/77 95 11/09/17 04:00 11/09/17 04:00 11/09/17 04:00 11/09/17 04:00 11/09/17 04:00 Intake and Output: 11/08/17 11/09/17 18:59 06:59 Intake Total 3200 Output Total 955 500 Balance 2245 -500 - Medications Medications: Current Medications Acetaminophen (Tylenol 325mg Tab) 650 mg PO Q6 PRN PRN Reason: Headache Heparin Sodium (Porcine) (Heparin) 5,000 units SC Q8 [facility] PRN Reason: Protocol Last Admin: 11/09/17 01:22 Dose: 5,000 units Acetaminophen (Ofirmev) 100 mls @ 400 mls/hr IVPB Q6H [facility] PRN Reason: Protocol Stop: 11/09/17 14:01 Last Admin: 11/09/17 02:38 Dose: 400 mls/hr Potassium Chloride/Dextrose/Sod Cl (Potassium Chl 20 Meq In D5-Ns) 1,000 mls @ 100 mls/hr IV .[facility] Stop: 11/09/17 21:43 Last Admin: 11/09/17 02:42 Dose: Not Given Metoclopramide HCl (Reglan) 10 mg IVP Q8 [facility] Last Admin: 11/09/17 01:23 Dose: 10 mg Morphine Sulfate (Morphine) 4 mg IVP Q4 PRN PRN Reason: Pain, severe (8-10) Last Admin: 11/07/17 21:06 Dose: 4 mg Morphine Sulfate (Morphine) 2 mg IVP Q4 PRN PRN Reason: Pain, moderate (4-7) Last Admin: 11/08/17 23:17 Dose: 2 mg Ondansetron HCl (Zofran Inj) 4 mg IVP Q6 PRN PRN Reason: Nausea/Vomiting Last Admin: 11/06/17 17:32 Dose: 4 mg Pantoprazole Sodium (Protonix Inj) 40 mg IVP DAILY [facility] Last Admin: 11/08/17 08:47 Dose: 40 mg - Labs Labs: 11/08/17 22:53 11/08/17 06:20 PT 12.9 Seconds (9.8-13.1) 11/05/17 17:57 INR 1.2 (0.9-1.2) 11/05/17 17:57 APTT 26.9 Seconds (25.6-37.1) 11/05/17 17:57 - Constitutional Appears: No Acute Distress - Head Exam Head Exam: ATRAUMATIC, NORMOCEPHALIC - Eye Exam Eye Exam: EOMI, Normal appearance Pupil Exam: PERRL - ENT Exam ENT Exam: Mucous Membranes Moist - Respiratory Exam Respiratory Exam: NORMAL BREATHING PATTERN - Cardiovascular Exam Cardiovascular Exam: REGULAR RHYTHM - GI/Abdominal Exam GI & Abdominal Exam: Soft. absent: Distended, Firm, Guarding, Rigid, Tenderness , Rebound Additional comments: Surgical dressing clean, dry, intact - Exam Additional comments: dried blood around ebss and near urethral meatus bess catheter in place with 700cc of yellow urine output in bag - Extremities Exam Extremities Exam: Normal Capillary Refill. absent: Calf Tenderness - Neurological Exam Neurological Exam: Alert, Awake, Oriented x3 - Psychiatric Exam Psychiatric exam: Normal Affect, Normal Mood - Skin Skin Exam: Dry, Intact, Normal Color, Warm Assessment and Plan - Assessment and Plan (Free Text) Plan: 62 M s/p exploratory laparotomy, Lysis of multiple adhesions, and repair of serosal tear POD#1 -Continue NPO -IV fluids -Analgesics/Anti-eetics PRN -Serial abdominal exams -Will likely discontinue bess with voiding trial today -Will discuss with Dr. Donald Kessler PGY1
[2017-11-09 07:12] LABS: BASO % 0.1 % (0.0-2.0); HEMOGLOBIN 8.7 g/dL (12.0-18.0); LYMPH # 0.7 K/uL (1.0-4.3); LYMPH % 10.3 % (20.0-40.0); MEAN CELL VOLUME 69.3 fl (80.0-94.0); MEAN CORPUSCULAR HEMOGLOBIN 21.7 pg (27.0-31.0); MEAN CORPUSCULAR HGB CONC 31.3 g/dL (33.0-37.0); MONO # 0.8 K/uL (0.0-0.8); MONO % 11.9 % (0.0-10.0); NEUT # 5.2 K/uL (1.8-7.0); NEUT % 77.7 % (50.0-75.0); RED CELL DISTRIBUTION WIDTH 21.1 % (11.5-14.5); WHITE BLOOD COUNT 6.7 K/uL (4.8-10.8)
[2017-11-09 07:38] LABS: ALB/GLOB RATIO 1.1 (1.0-2.1); ALBUMIN 3.2 g/dL (3.5-5.0); ALT/SGPT 32 U/L (21-72); AST/SGOT 22 U/L (17-59); BLOOD UREA NITROGEN 10 mg/dl (9-20); CALCIUM 8.6 mg/dL (8.4-10.2); GFR AFRICAN-AMERICAN > 60; GFR NON-AFRICAN AMERICAN > 60
--- NOTE | 2017-11-10 00:38 | CP.PCM.PN ---
Subjective - Date & Time of Evaluation Date of Evaluation: 11/09/17 Time of Evaluation: 17:10 - Subjective Subjective: Has some abdominal pain on incision site, otherwise feels better. Pain medications helping. Denies cp, sob, fever or chills Objective - Vital Signs/Intake and Output Vital Signs (last 24 hours): Temp Pulse Resp BP Pulse Ox 99.4 F 83 18 118/79 95 11/09/17 23:48 11/09/17 23:48 11/09/17 23:48 11/09/17 23:48 11/09/17 23:48 Intake and Output: 11/09/17 11/10/17 18:59 07:59 Intake Total 250 Output Total 185 Balance 65 - Medications Medications: Current Medications Acetaminophen (Tylenol 325mg Tab) 650 mg PO Q6 PRN PRN Reason: Headache Heparin Sodium (Porcine) (Heparin) 5,000 units SC Q8 [facility] PRN Reason: Protocol Last Admin: 11/09/17 17:07 Dose: 5,000 units Dextrose/Sodium Chloride (Dextrose 5%-0.45% Ns 500 Ml) 1,000 mls @ 80 mls/hr IV .[id number] [facility] Stop: 11/10/17 16:42 Last Admin: 11/09/17 17:06 Dose: 80 mls/hr Metoclopramide HCl (Reglan) 10 mg IVP Q8 [facility] Last Admin: 11/09/17 17:09 Dose: 10 mg Morphine Sulfate (Morphine) 4 mg IVP Q4 PRN PRN Reason: Pain, severe (8-10) Last Admin: 11/07/17 21:06 Dose: 4 mg Morphine Sulfate (Morphine) 2 mg IVP Q4 PRN PRN Reason: Pain, moderate (4-7) Last Admin: 11/09/17 20:41 Dose: 2 mg Ondansetron HCl (Zofran Inj) 4 mg IVP Q6 PRN PRN Reason: Nausea/Vomiting Last Admin: 11/06/17 17:32 Dose: 4 mg Pantoprazole Sodium (Protonix Inj) 40 mg IVP DAILY [facility] Last Admin: 11/09/17 08:43 Dose: 40 mg - Labs Labs: 11/09/17 05:20 11/09/17 05:20 PT 12.9 Seconds (9.8-13.1) 11/05/17 17:57 INR 1.2 (0.9-1.2) 11/05/17 17:57 APTT 26.9 Seconds (25.6-37.1) 11/05/17 17:57 - Constitutional Appears: Well, No Acute Distress - Head Exam Head Exam: ATRAUMATIC - Respiratory Exam Respiratory Exam: Clear to Ausculation Bilateral, NORMAL BREATHING PATTERN - Cardiovascular Exam Cardiovascular Exam: REGULAR RHYTHM, +S1, +S2 - GI/Abdominal Exam GI & Abdominal Exam: Soft (abdominal dressing dry/intct), Diminished Bowel Sounds - Neurological Exam Neurological Exam: Alert, Oriented x3 - Psychiatric Exam Psychiatric exam: Normal Affect, Normal Mood - Skin Skin Exam: Normal Color, Warm Assessment and Plan (1) Small bowel obstruction Status: Acute (2) Abdominal pain Status: Acute (3) Hypertension Status: Chronic - Assessment and Plan (Free Text) Assessment: 62 year old male with sbo s/p exploratory laparotomy and lysis of adhesions POD #1 Plan: maintain NPO per sx recommendation pain medication prn anti-emetics prn monitor labs GI/dvt prophylaxis
--- NOTE | 2017-11-10 09:39 | CP.PCM.PN ---
Subjective - Date & Time of Evaluation Date of Evaluation: 11/10/17 Time of Evaluation: 08:45 - Subjective Subjective: General Surgery progress Note for Dr. Jewel Brooks, PGY-1 Pt S & E at bedside. Pt reports ab pain is much improved, only along surgical site occasionally. Is tolerating CLD. Had liquid stool and flatus overnight. Is Ambulating. Voiding. No problems. Objective - Vital Signs/Intake and Output Vital Signs (last 24 hours): Temp Pulse Resp BP Pulse Ox 98.6 F 89 19 131/74 98 11/10/17 07:42 11/10/17 07:42 11/10/17 07:42 11/10/17 07:42 11/10/17 07:42 Intake and Output: 11/10/17 11/10/17 06:59 18:59 Intake Total Output Total Balance - Medications Medications: Current Medications Acetaminophen (Tylenol 325mg Tab) 650 mg PO Q6 PRN PRN Reason: Headache Heparin Sodium (Porcine) (Heparin) 5,000 units SC Q8 [facility] PRN Reason: Protocol Last Admin: 11/10/17 08:09 Dose: 5,000 units Dextrose/Sodium Chloride (Dextrose 5%-0.45% Ns 500 Ml) 1,000 mls @ 80 mls/hr IV .[id number] [facility] Stop: 11/10/17 16:42 Last Admin: 11/10/17 06:00 Dose: 80 mls/hr Metoclopramide HCl (Reglan) 10 mg IVP Q8 [facility] Last Admin: 11/10/17 08:09 Dose: 10 mg Morphine Sulfate (Morphine) 4 mg IVP Q4 PRN PRN Reason: Pain, severe (8-10) Last Admin: 11/07/17 21:06 Dose: 4 mg Morphine Sulfate (Morphine) 2 mg IVP Q4 PRN PRN Reason: Pain, moderate (4-7) Last Admin: 11/10/17 03:05 Dose: 2 mg Ondansetron HCl (Zofran Inj) 4 mg IVP Q6 PRN PRN Reason: Nausea/Vomiting Last Admin: 11/06/17 17:32 Dose: 4 mg Pantoprazole Sodium (Protonix Inj) 40 mg IVP DAILY [facility] Last Admin: 11/10/17 08:09 Dose: 40 mg - Labs Labs: 11/09/17 05:20 11/09/17 05:20 PT 12.9 Seconds (9.8-13.1) 11/05/17 17:57 INR 1.2 (0.9-1.2) 11/05/17 17:57 APTT 26.9 Seconds (25.6-37.1) 11/05/17 17:57 - Constitutional Appears: Non-toxic, No Acute Distress - Head Exam Head Exam: ATRAUMATIC, NORMAL INSPECTION, NORMOCEPHALIC - Eye Exam Eye Exam: EOMI, Normal appearance - ENT Exam ENT Exam: Mucous Membranes Moist, Normal Exam - Neck Exam Neck Exam: Full ROM, Normal Inspection - Respiratory Exam Respiratory Exam: NORMAL BREATHING PATTERN - Cardiovascular Exam Cardiovascular Exam: REGULAR RHYTHM - GI/Abdominal Exam GI & Abdominal Exam: Soft, Tenderness (along incision site). absent: Distended , Firm, Guarding, Rigid, Rebound - Extremities Exam Extremities Exam: Normal Inspection - Neurological Exam Neurological Exam: Alert, Awake, CN II-XII Intact, Oriented x3 - Psychiatric Exam Psychiatric exam: Normal Affect, Normal Mood - Skin Skin Exam: Dry, Intact, Normal Color, Warm Additional comments: abdomin with midline surgical incision site, socorro in place, no drainage noted. Minimal erythema at socorro insertion sites. Assessment and Plan - Assessment and Plan (Free Text) Assessment: 62 M s/p exploratory laparotomy, Lysis of multiple adhesions, and repair of serosal tear POD#2 Plan: Advanced to FLD- advance as tolerated IVF pain mgmt Serial ab exams Encourage ambulation OOBTC Encourage IS use Further recs pending attending evaluation JOLLY attending Cecilia, PGY-1
--- NOTE | 2017-11-10 19:54 | CP.PCM.PN ---
Subjective - Date & Time of Evaluation Date of Evaluation: 11/10/17 Time of Evaluation: 11:45 - Subjective Subjective: Seen and examined at the bed side. Tolerating clear Liquid diet and to be advanced to regular diet. No fever or chills. Ambulating well. Objective - Vital Signs/Intake and Output Vital Signs (last 24 hours): Temp Pulse Resp BP Pulse Ox 98.5 F 77 18 123/81 96 11/10/17 15:24 11/10/17 15:24 11/10/17 15:24 11/10/17 15:24 11/10/17 15:24 - Medications Medications: Current Medications Acetaminophen (Tylenol 325mg Tab) 650 mg PO Q6 PRN PRN Reason: Headache Heparin Sodium (Porcine) (Heparin) 5,000 units SC Q8 [facility] PRN Reason: Protocol Last Admin: 11/10/17 16:08 Dose: 5,000 units Metoclopramide HCl (Reglan) 10 mg IVP Q8 [facility] Last Admin: 11/10/17 16:08 Dose: 10 mg Morphine Sulfate (Morphine) 4 mg IVP Q4 PRN PRN Reason: Pain, severe (8-10) Last Admin: 11/07/17 21:06 Dose: 4 mg Morphine Sulfate (Morphine) 2 mg IVP Q4 PRN PRN Reason: Pain, moderate (4-7) Last Admin: 11/10/17 12:57 Dose: 2 mg Ondansetron HCl (Zofran Inj) 4 mg IVP Q6 PRN PRN Reason: Nausea/Vomiting Last Admin: 11/06/17 17:32 Dose: 4 mg Pantoprazole Sodium (Protonix Inj) 40 mg IVP DAILY [facility] Last Admin: 11/10/17 08:09 Dose: 40 mg - Labs Labs: 11/09/17 05:20 11/09/17 05:20 PT 12.9 Seconds (9.8-13.1) 11/05/17 17:57 INR 1.2 (0.9-1.2) 11/05/17 17:57 APTT 26.9 Seconds (25.6-37.1) 11/05/17 17:57 Assessment and Plan (1) Small bowel obstruction Status: Acute (2) Abdominal pain Status: Acute (3) Hypertension Status: Chronic - Assessment and Plan (Free Text) Assessment: Improving Plan: Continue Current care Advance Diet as Tolerated.
[2017-11-10 23:26] VITALS: RESP 20
[2017-11-11 07:50] VITALS: BP 124/89; PULSE 74; TEMP 97.9; O2SAT 97
[2017-11-11] MEDS ORDERED: Oxycodone/Acetaminophen 5/325 mg Tab PO PRN (08:08)
--- NOTE | 2017-11-11 08:08 | CP.PCM.PN ---
Subjective - Date & Time of Evaluation Date of Evaluation: 11/11/17 Time of Evaluation: 08:05 - Subjective Subjective: General Surgery progress Note: Dr. Bennett Patient was seen and evaluated at bedside this morning. Patient reports abdominal pain is improved a lot and is eager to go home. Reports that he is tolerating the CLD well. States that he passes gas and had a bowel movement as well. Feeling well today. Denies of F/N/V/C/SOB/CP/headache Objective - Vital Signs/Intake and Output Vital Signs (last 24 hours): Temp Pulse Resp BP Pulse Ox 97.9 F 74 20 124/89 97 11/11/17 07:49 11/11/17 07:49 11/11/17 07:49 11/11/17 07:49 11/11/17 07:49 - Medications Medications: Current Medications Acetaminophen (Tylenol 325mg Tab) 650 mg PO Q6 PRN PRN Reason: Headache Heparin Sodium (Porcine) (Heparin) 5,000 units SC Q8 [facility] PRN Reason: Protocol Last Admin: 11/11/17 00:07 Dose: 5,000 units Metoclopramide HCl (Reglan) 10 mg IVP Q8 [facility] Last Admin: 11/11/17 00:07 Dose: 10 mg Morphine Sulfate (Morphine) 4 mg IVP Q4 PRN PRN Reason: Pain, severe (8-10) Last Admin: 11/07/17 21:06 Dose: 4 mg Morphine Sulfate (Morphine) 2 mg IVP Q4 PRN PRN Reason: Pain, moderate (4-7) Last Admin: 11/10/17 21:48 Dose: 2 mg Ondansetron HCl (Zofran Inj) 4 mg IVP Q6 PRN PRN Reason: Nausea/Vomiting Last Admin: 11/06/17 17:32 Dose: 4 mg Pantoprazole Sodium (Protonix Inj) 40 mg IVP DAILY [facility] Last Admin: 11/10/17 08:09 Dose: 40 mg - Labs Labs: 11/09/17 05:20 11/09/17 05:20 PT 12.9 Seconds (9.8-13.1) 11/05/17 17:57 INR 1.2 (0.9-1.2) 11/05/17 17:57 APTT 26.9 Seconds (25.6-37.1) 11/05/17 17:57 - Constitutional Appears: Well, Non-toxic, No Acute Distress - Head Exam Head Exam: ATRAUMATIC - GI/Abdominal Exam GI & Abdominal Exam: Soft. absent: Hernia, Mass Additional comments: Felipe are in place. Surgical site is well coapted. No signs of active infection at this time. Mild tenderness surrounding the surgical site - Neurological Exam Neurological Exam: Alert, Awake, Oriented x3 - Psychiatric Exam Psychiatric exam: Normal Affect, Normal Mood Assessment and Plan - Assessment and Plan (Free Text) Assessment: 62 M s/p exploratory laparotomy, Lysis of multiple adhesions, and repair of serosal tear POD#3 Plan: Advance to regular diet pain mgmt Clear for DC from surgical standpoint d/w plan with attending
--- NOTE | 2017-11-12 02:01 | CP.PCM.DIS ---
Provider - Provider Date of Admission: 11/05/17 19:00 Attending physician: Cynthia Eubanks MD Time Spent in preparation of Discharge (in minutes): 25 Diagnosis - Discharge Diagnosis (1) Small bowel obstruction Status: Acute Priority: High (2) Abdominal pain Status: Acute Priority: High (3) Hypertension Status: Chronic Priority: Low Hospital Course - Lab Results Lab Results: Micro Results 11/05/17 17:50 Blood-Venous Blood Culture - Final NO GROWTH AFTER 5 DAYS 11/05/17 17:50 Blood-Venous Gram Stain - Final TEST NOT PERFORMED 11/05/17 17:35 Blood-Venous Blood Culture - Final NO GROWTH AFTER 5 DAYS 11/05/17 17:35 Blood-Venous Gram Stain - Final TEST NOT PERFORMED Most Recent Lab Values WBC 6.7 K/uL (4.8-10.8) 11/09/17 05:20 RBC 4.00 Mil/uL (4.40-5.90) L 11/09/17 05:20 Hgb 8.7 g/dL (12.0-18.0) L 11/09/17 05:20 Hct 27.7 % (35.0-51.0) L 11/09/17 05:20 MCV 69.3 fl (80.0-94.0) L 11/09/17 05:20 MCH 21.7 pg (27.0-31.0) L 11/09/17 05:20 MCHC 31.3 g/dL (33.0-37.0) L 11/09/17 05:20 RDW 21.1 % (11.5-14.5) H 11/09/17 05:20 Plt Count 240 K/uL (130-400) 11/09/17 05:20 MPV 9.0 fl (7.2-11.7) 11/09/17 05:20 Neut % (Auto) 77.7 % (50.0-75.0) H 11/09/17 05:20 Lymph % (Auto) 10.3 % (20.0-40.0) L 11/09/17 05:20 Vilas % (Auto) 11.9 % (0.0-10.0) H 11/09/17 05:20 Eos % (Auto) 0.0 % (0.0-4.0) 11/09/17 05:20 Baso % (Auto) 0.1 % (0.0-2.0) 11/09/17 05:20 Neut # (Auto) 5.2 K/uL (1.8-7.0) 11/09/17 05:20 Lymph # (Auto) 0.7 K/uL (1.0-4.3) L 11/09/17 05:20 [place] # (Auto) 0.8 K/uL (0.0-0.8) 11/09/17 05:20 Eos # (Auto) 0.0 K/uL (0.0-0.7) 11/09/17 05:20 Baso # (Auto) 0.0 K/uL (0.0-0.2) 11/09/17 05:20 PT 12.9 Seconds (9.8-13.1) 11/05/17 17:57 INR 1.2 (0.9-1.2) 11/05/17 17:57 APTT 26.9 Seconds (25.6-37.1) 11/05/17 17:57 pO2 44 mm/Hg (30-55) 11/07/17 22:10 VBG pH 7.44 (7.32-7.43) H 11/07/17 22:10 VBG pCO2 38 mmHg (40-60) L 11/07/17 22:10 VBG HCO3 25.8 mmol/L 11/07/17 22:10 VBG Total CO2 27.0 mmol/L (22-28) 11/07/17 22:10 VBG O2 Sat (Calc) 85.1 % (40-65) H 11/07/17 22:10 VBG Base Excess 1.7 mmol/L (0.0-2.0) 11/07/17 22:10 VBG Potassium 3.7 mmol/L (3.6-5.2) 11/07/17 22:10 Sodium 136.0 mmol/L (132-148) 11/07/17 22:10 Chloride 106.0 mmol/L (98-107) 11/07/17 22:10 Glucose 103 mg/dL (75-110) 11/07/17 22:10 Lactate 1.1 mmol/L (0.7-2.1) 11/07/17 22:10 FiO2 21.0 % 11/07/17 22:10 Sodium 142 mmol/l (132-148) 11/09/17 05:20 Potassium 4.7 MMOL/L (3.6-5.0) 11/09/17 05:20 Chloride 103 mmol/L (98-107) 11/09/17 05:20 Carbon Dioxide 25 mmol/L (22-30) 11/09/17 05:20 Anion Gap 19 (10-20) 11/09/17 05:20 BUN 10 mg/dl (9-20) 11/09/17 05:20 Creatinine 0.8 mg/dl (0.8-1.5) 11/09/17 05:20 Est GFR ( Amer) > 60 11/09/17 05:20 Est GFR (Non-Af Amer) > 60 11/09/17 05:20 Random Glucose 141 mg/dL (75-110) H 11/09/17 05:20 Calcium 8.6 mg/dL (8.4-10.2) 11/09/17 05:20 Phosphorus 3.9 mg/dl (2.5-4.5) 11/05/17 17:57 Magnesium 2.4 MG/DL (1.6-2.3) H 11/06/17 11:49 Total Bilirubin 0.5 mg/dl (0.2-1.3) 11/09/17 05:20 AST 22 U/L (17-59) 11/09/17 05:20 ALT 32 U/L (21-72) 11/09/17 05:20 Alkaline Phosphatase 45 U/L (38-126) 11/09/17 05:20 Troponin I < 0.0120 ng/mL (0.00-0.120) 11/05/17 17:57 Total Protein 6.2 G/DL (6.3-8.2) L 11/09/17 05:20 Albumin 3.2 g/dL (3.5-5.0) L 11/09/17 05:20 Globulin 3.0 gm/dL (2.2-3.9) 11/09/17 05:20 Albumin/Globulin Ratio 1.1 (1.0-2.1) 11/09/17 05:20 Lipase 221 U/L (23-300) 11/05/17 17:57 Venous Blood Potassium 3.7 mmol/L (3.6-5.2) 11/07/17 22:10 Blood Type B POSITIVE 11/08/17 11:38 Antibody Screen Negative 11/08/17 11:38 Antibody Identification Anti Daisy 11/05/17 17:50 Crossmatch See Detail 11/08/17 11:38 BBK History Checked Patient has bt 11/08/17 11:38 Discharge Exam - Head Exam Head Exam: ATRAUMATIC Discharge Plan - Discharge Medications Prescriptions: Pantoprazole [Protonix] 40 mg PO DAILY #14 ect - Follow Up Plan Condition: STABLE Disposition: HOME/ ROUTINE Instructions: Small Bowel Obstruction (DC), Exploratory Laparotomy (DC) Additional Instructions: pt. cleared for discharge to Home today by pt. tolerating diet, + passing gas, denies n/v/d, fever or chills follow up with primary MD and Dr. Bennett 7-10 days Referrals: Garrison Bennett MD [Staff Provider] - Darwin Snider MD [Family Provider] -
== END 2017-11-11 14:29 | disposition home or self-care (01) | DRG 337 ==
LOC: H.ER 16:47 → H.ERHOLD 19:00 → H.MEDSURG1 21:20
PROVIDERS: ADMIT Internal Medicine; ATTEND Internal Medicine
PROC: 0DN80ZZ Release Small Intestine, Open Approach (ICD-10-PCS; principal; 2017-11-08 13:00)
DX: K56.50 Intestinal adhesions [bands], unspecified as to partial versus complete obstruction (principal); I10 Essential (primary) hypertension; J45.909 Unspecified asthma, uncomplicated

== ENCOUNTER 2018-04-17 04:52 | Emergency (ER) | payer MEDICARE ==
[2018-04-17 04:53] VITALS: BMI 26.6
[2018-04-17 05:10] VITALS: RESP 16; O2SAT 98
--- NOTE | 2018-04-17 05:54 | ED PDOC ---
HPI: Back Time Seen by Provider: 04/17/18 05:15 Chief Complaint (Nursing): Back Pain Chief Complaint (Provider): Back Pain History Per: Patient History/Exam Limitations: no limitations Onset/Duration Of Symptoms: Days (x4) Current Symptoms Are (Timing): Still Present Additional Complaint(s): Satish Palomares is a 63 year old male with a past medical history of hypertension, chronic lower back pain and diverticulitis, who is presenting to the ED for evaluation of lower back pain onset 4 days ago. Patient states that pain is worse with sitting and laying, but is better when he is in motion. He reports that he was getting epidural injections months ago but thy only lasted a week. Patient denies any urinary symptoms, bowel changes, loss of sensation, or weakness. PMD: Darwin Snider Past Medical History Reviewed: Historical Data, Nursing Documentation, Vital Signs Vital Signs: Last Vital Signs Temp 98.1 F 04/17/18 05:07 Pulse 74 04/17/18 05:07 Resp 16 04/17/18 05:07 BP 133/92 H 04/17/18 05:07 Pulse Ox 98 04/17/18 05:07 - Medical History PMH: Asthma (childhood), Diverticulitis, HTN, Chronic Pain (back) Denies: Chronic Kidney Disease - Surgical History Surgical History: Back Surgery, Hernia Repair - Family History Family History: States: [place] (mother) - Social History Current smoker - smoking cessation education provided: No Alcohol: None Drugs: Denies - Home Medications Home Medications: Ambulatory Orders Medication Instructions Recorded Baclofen [Lioresal] 10 mg PO HS 11/05/17 Losartan Potassium 50 mg PO DAILY 11/05/17 Oxycodone HCl/Acetaminophen 1 tab PO QID 11/05/17 [Percocet 10-325 mg Tablet] Pregabalin [Lyrica] 100 mg PO BID 11/05/17 Temazepam [Restoril] 15 mg PO HS 11/05/17 Pantoprazole [Protonix] 40 mg PO DAILY #14 ect 11/11/17 Cyclobenzaprine [Cyclobenzaprine 10 mg PO BID #15 tab 04/17/18 HCl] Lidocaine 1 each TP DAILY #10 adh..patch 04/17/18 - Allergies Allergies/Adverse Reactions: Allergies Allergy/AdvReac Type Severity Reaction Status Date / Time No Known Allergies Allergy Verified 03/19/15 11:01 Review of Systems ROS Statement: Except As Marked, All Systems Reviewed And Found Negative Gastrointestinal: Negative for: Other (bowel changes) Genitourinary Male: Negative for: Other (urinary symptoms) Musculoskeletal: Positive for: Back Pain Neurological: Negative for: Weakness, Numbness Physical Exam - Reviewed Nursing Documentation Reviewed: Yes Vital Signs Reviewed: Yes - Physical Exam Appears: Positive for: Well, Non-toxic, No Acute Distress Head Exam: Positive for: ATRAUMATIC, NORMAL INSPECTION, NORMOCEPHALIC Skin: Positive for: Normal Color, Warm, DRY Eye Exam: Positive for: Normal appearance ENT: Positive for: Normal ENT Inspection Neck: Positive for: Normal, Painless ROM Cardiovascular/Chest: Positive for: Regular Rate, Rhythm. Negative for: Murmur Respiratory: Positive for: Normal Breath Sounds. Negative for: Respiratory Distress Gastrointestinal/Abdominal: Positive for: Normal Exam, Soft. Negative for: Tenderness Back: Positive for: Other (lumbar paravertebral musculature tenderness, negative straight leg raise test bilaterally). Negative for: L CVA Tenderness, R CVA Tenderness Extremity: Positive for: Normal ROM. Negative for: Deformity, Swelling Neurologic/Psych: Positive for: Alert, Oriented, Other (Motor and sensation intact). Negative for: Motor/Sensory Deficits - ECG O2 Sat by Pulse Oximetry: 98 (RA) Pulse Ox Interpretation: Normal Medical Decision Making Medical Decision Making: Time: 5:29 A/P: 63 year old male presenting with lower back pain --Based on exam and history most likely musculoskeletal --Not concerned for AAA, corden impingement syndrome, dissection or other acute pathology --Will treat with NSAIDs and muscle relaxer and then reevaluation 6:30 --Patient reports relief from pain --Advised to followup with PMD --Well appearing, ambulatory upon discharge Scribe Attestation: Documented by Bety Louie, acting as a scribe for Ranjit Peterson MD. Provider Scribe Attestation: All medical record entries made by the Scribe were at my direction and personally dictated by me. I have reviewed the chart and agree that the record accurately reflects my personal performance of the history, physical exam, medical decision making, and the department course for this patient. I have also personally directed, reviewed, and agree with the discharge instructions and disposition. Disposition - Clinical Impression Clinical Impression: Back pain - Disposition Referrals: Darwin Snider MD [Primary Care Provider] - Disposition: Routine/Home Disposition Time: 06:30 Condition: IMPROVED Prescriptions: Cyclobenzaprine [Cyclobenzaprine HCl] 10 mg PO BID #15 tab Lidocaine 1 each TP DAILY #10 adh..patch Instructions: Low Back Pain in Adults Forms: [facility] (Lao) Print Language: INDONESIAN
[2018-04-17 06:21] VITALS: BP 128/86; PULSE 72; TEMP 97.8
== END 2018-04-17 06:21 | disposition home or self-care (01) ==
LOC: H.ER 04:52
DX: M54.9 Dorsalgia, unspecified (principal); G89.29 Other chronic pain; I10 Essential (primary) hypertension
CPT/HCPCS: 96372; 99282; J1885